=== PATIENT | male | born 1945 | race Caucasian/White ===

== ENCOUNTER → 2016-11-08 | Day surgery (SDC) | payer MEDICARE, BC ==
[~2016-11-08] MED LIST: ACCURETIC 20-121 TAB; ASPIRIN325 M1 PO; ASPIRINEC; AUGMENTIN875 MG PO; BAYER ASPIRIN325 M1 PO; COLACE; COUMADIN; FOLIC ACID1 MG PO; GLYBURIDE2.5 M1 PO; HYDRALAZINE HCL25 MG PO; HYDROCHLOROTHIA25 MG PO; LASIX20 MG PO; LEVO-T200 MCG PO; LEVOTHYROXINE175 MCG PO; LEVOXYL200 MC1 PO; LISINOPRIL20 MG PO; METFORMIN HCL850 MG PO; NASCOBAL1 EACH; PROTONIX; ST. JOSEPH ASP325 MG; SYNTHROID; VICODIN 5/1 TAB 5/50 PO; XELODA500 MG PO
--- NOTE | ~2016-11-08 | OR ---
Unit #: [id number] #: [id number] Patient: LENY SCOTT [id number] [facility] [address] [facility]. [place], [place] [address] [id number] MR#: [id number] NAME: LENY SCOTT ROOM: Date of Procedure: 11/08/2016 Admission Date: 11/08/2016 Surgeon: Marito Muir M.D. : 1945 Attending Physician: Marito Muir M.D. Primary Care Physician: Venkatesh Alvarado M.D. OPERATIVE REPORT PRIMARY CARE PHYSICIAN Venkatesh Alvarado M.D. PREOPERATIVE DIAGNOSIS Rectal cancer, status post adjuvant therapy. POSTOPERATIVE DIAGNOSIS Residual carcinoma and stricture at 10 cm from the anal verge. PROCEDURE PERFORMED Limited proctosigmoidoscopy. ANESTHESIA Monitored anesthesia. INDICATIONS FOR PROCEDURE A 71-year-old gentleman, who was previously diagnosed with rectal cancer in 05/2016, has completed preoperative chemotherapy and radiation therapy and was referred by Medical Oncology for consideration of surgical resection. DESCRIPTION OF PROCEDURE The patient was admitted to [facility], positively identified, and transported to the endoscopy unit. After appropriate monitoring and positioning, he was sedated by the anesthesiologist. On rectal examination, there was some residual loose stool in the rectal vault. There was no palpable mass on digital examination. Colonoscope was passed through the anal verge and we copiously irrigated the rectal vault to clear of residual stool and as I passed up into the mid and upper rectum, he had evidence of some residual carcinoma and stricturing that was circumferential. It was a very tight stricture that I could see stool above the stricture, but it was much too narrow to even consider attempting the passage of a colonoscope. After the fact, I spoke with his and ask if he had been complaining of bloating, nausea, and vomiting and if he had been moving his bowels. She says he goes frequently and it is usually loose and he feels as though he incompletely evacuates. I certainly understand why he has those symptoms after seeing his endoscopy. At this point, his residual carcinoma is high enough above the anal verge that a low anterior resection could most likely be done; however, he cannot be adequately prepped with a stricture of this nature. The only alternative would be to try to place a stent to dilate the stricture adequately, so that he could have an adequate bowel prep and then have Unit #: [id number] #: [id number] Patient: LENY SCOTT subsequent stent removal and low anterior resection. However, given that he has had chemo and radiation and from the look of the stricture, it looks pretty fibrotic and I do not know if this is going to respond to stenting. I told his that if could not be stented, we could not do an adequate prep, then he would have to have a resection with colostomy formation and if we have negative margins and he has adequate residual rectum, then a low anterior anastomosis could be done at a later date. I am going to have the patient after he is recovered from his sedation, come the office, will discuss these options. I will also speak with [facility] to see what their experience with a stent in this situation are. Dictated by... Kayla Joseph/fuad TD: 11/09/2016 06:48 JOB #: [id number] OPERATIVE REPORT X Marito Muir MD PROCEDURE OPERATIVE NOTE
== END | disposition home or self-care (01) ==
LOC: COPS 12:20
DX: C20 Malignant neoplasm of rectum (principal); K62.4 Stenosis of anus and rectum; E03.9 Hypothyroidism, unspecified; E78.5 Hyperlipidemia, unspecified; I10 Essential (primary) hypertension; E66.01 Morbid (severe) obesity due to excess calories; E11.9 Type 2 diabetes mellitus without complications; N39.0 Urinary tract infection, site not specified; Z86.711 Personal history of pulmonary embolism; Z90.89 Acquired absence of other organs; Z98.890 Other specified postprocedural states; Z88.8 Allergy status to other drugs, medicaments and biological substances; Z79.82 Long term (current) use of aspirin; Z79.899 Other long term (current) drug therapy; Z87.891 Personal history of nicotine dependence
CPT/HCPCS: 82947; J2250

== ENCOUNTER 2016-11-13 13:21 | Inpatient (IN) | payer MEDICARE, BC ==
--- NOTE | ~2016-11-13 | CR6 ---
[facility] A Service of [facility] RADIOLOGY TEXT RESULTS PATIENT: LENY SCOTT LOCATION: [place] [address]- : [birth year] UNIT #: [id number] AGE: [address]: Marito Muir MD SEX: M ORDER DR: [id number] [facility] [address] [facility] [address] [place], [place] [address] [id number] I MR#: [id number] Acc #: [id number] NAME: LENY SCOTT : 1945 SEX: M STUDY DATE/TIME: 11/25/2016 9:10 UNIT: [facility] ROOM: [facility] STUDY DESCRIPTION: CR Abdomen Portable Sng View Attending Physician: Marito Muir M.D. Ordering Physician: Efrain Selby M.D. Primary Care Physician: Venkatesh Alvarado M.D. MEDICAL IMAGING REPORT This report is preliminary unless electronic signature is present EXAM KUB INDICATIONS Nausea and vomiting and constipation since colon resection last . FINDINGS This patient has marked gaseous distension of stomach, small bowel and colon. Findings are most in keeping with adynamic ileus. Gastric bubble in particular appears distended and patient potentially may benefit from nasogastric decompression. Surgical drain is suspected within the operative bed, and there are surgical levy overlying the left lower quadrant. IMPRESSION Gaseous distension of multiple bowel loops most in keeping with adynamic ileus. Patient is noted to have significant distension of the gastric bubble and potentially may benefit from nasogastric decompression. Dictated by... Alicia Beaver M.D. THIS IS AN ELECTRONICALLY VERIFIED REPORT Alicia Beaver M.D. at 11/27/2016 9:18 AM AFF/psc TD: 11/25/2016 20:36 JOB #: [id number] MEDICAL IMAGING REPORT COPY
--- NOTE | ~2016-11-13 | CR4 ---
[facility] A Service of [facility] & [facility] RADIOLOGY TEXT RESULTS PATIENT: LENY SCOTT LOCATION: [place] [address]- : [birth year] UNIT #: [id number] AGE: [address]: Marito Muir MD SEX: M ORDER DR: [id number] [facility] [address] [place], [place] [address] [id number] I MR#: [id number] Acc #: [id number] NAME: LENY SCOTT. : 1945 SEX: M STUDY DATE/TIME: 11/18/2016 10:41 UNIT: [facility] ROOM: [facility] STUDY DESCRIPTION: CR Abdomen Flat Upright or Dec Attending Physician: Marito Muir M.D. Ordering Physician: Calvin Kunz Jr., M.D. Primary Care Physician: Venkatesh Alvarado M.D. MEDICAL IMAGING REPORT This report is preliminary unless electronic signature is present EXAM Abdomen series 11/18/2016. HISTORY 71-year-old male with a 2-day history of abdomen distension, nausea and vomiting. History of surgery for colon cancer. TECHNIQUE Flat and upright abdomen series was obtained. FINDINGS Surgical levy are superimposed over the lower abdominal midline, and there is a surgical drain in the right side of the pelvis. There is marked dilatation of air-filled small bowel throughout the central abdomen, the colon appears decompressed. There may also be some free air within the upper anterior abdomen, likely postoperative, correlate clinically. The stomach is at least moderately distended with air. The findings are nonspecific. Postoperative adynamic ileus is likely. If there is clinical suspicion for bowel perforation or mechanical obstruction, consider followup CT abdomen and pelvis for more detailed evaluation. IMPRESSION 1. Postop changes recent abdominal surgery with right-side pelvic drain. 2. Markedly distended air-filled small bowel with a decompressed colon. Postoperative adynamic ileus is likely, but mechanical obstruction is not excluded. 3. Possible free air within the upper anterior abdomen may be postoperative, correlate clinically. 4. Air distended stomach. STAT * RESULT [facility] A Service of [facility] & [facility] RADIOLOGY TEXT RESULTS PATIENT: LENY SCOTT LOCATION: [place] [address]- : [birth year] UNIT #: [id number] AGE: [address]: Marito Muir MD SEX: M ORDER DR: Dictated by... Juan Terrazas M.D. THIS IS AN ELECTRONICALLY VERIFIED REPORT Juan Terrazas M.D. at 11/18/2016 3:06 PM GÓMEZ/mary TD: 11/18/2016 13:14 JOB #: [id number] MEDICAL IMAGING REPORT COPY
--- NOTE | ~2016-11-13 | HP ---
Unit #: [id number] #: [id number] Patient: LENY HELMS [id number] [address] [place], [place] [address] [id number] I MR#: [id number] NAME: LENY HELMS. ROOM: 228 Age: Sex: M Admission Date: 11/13/2016 : 1945 Attending Physician: Marito Muir M.D. Primary Care Physician: Venkatesh Alvarado M.D. HISTORY AND PHYSICAL HISTORY OF PRESENT ILLNESS Mr. Helms is a 71-year-old gentleman who was initially diagnosed in April 2016 with rectal cancer. At that time, he was referred for adjuvant chemotherapy and radiation which he has completed. He recently was referred back to our office for evaluation for possible surgical resection. On sigmoidoscopy at that time, he was found to have a fibrotic stricture that was near obstructing at 8-10 cm from the anal verge. He was sent home with plan to bring the patient back for resection if he was able to be adequately bowel prepped, but because of his stricture, we wanted to investigate whether or not a stent could be placed. Due to the fibrotic nature of the stricture, it is felt that he probably would not respond to stenting. He now presents with complaints of colic, nausea, vomiting, and obstipation x24 hours. I plan on admitting the patient to the hospital and preparing him for surgical resection. PAST MEDICAL HISTORY 1. Type 2 diabetes. 2. Previous pulmonary embolism. 3. Hypertension. 4. Hypothyroidism. 5. Obstructive sleep apnea. 6. Tonsillectomy. 7. Multiple foot surgeries for tarsal tunnel syndrome. ALLERGIES No allergies to medication. CURRENT MEDICATIONS 1. Levothyroxine. 2. Baby aspirin. 3. Lisinopril. 4. Glyburide. 5. Metformin. 6. Lasix. FAMILY HISTORY Colon cancer, atherosclerotic coronary artery disease, hypertension, and diabetes. SOCIAL HISTORY He denies the use of tobacco or alcohol. He is . Retired. REVIEW OF SYSTEMS No fever or chills and no hematemesis, hematochezia, or melena. Unit #: [id number] #: [id number] Patient: LENY HELMS PHYSICAL EXAMINATION VITAL SIGNS: Temperature is 97.8, pulse 90, respirations 23 and unlabored, and blood pressure 144/72. GENERAL: He is awake, alert, and oriented, and currently in no acute distress. He has had no further nausea or vomiting since being given some Zofran. HEENT: Unremarkable. CARDIAC: Regular rhythm. LUNGS: Clear. ABDOMEN: Nondistended. It is soft. He does not have any involuntary guarding or rebound tenderness. There is no palpable mass. EXTREMITIES: No edema. NEUROLOGICAL: Grossly intact. DIAGNOSTIC STUDIES LABORATORY: Comprehensive metabolic panel is within normal limits. Lipase is normal. White count is 5700, hemoglobin 12.9, and platelets 299,000. IMAGING: Plain abdominal films show air throughout the majority of the colon but no air in the rectum. ASSESSMENT AND PLAN A 71-year-old gentleman with a fibrotic stricture at the site of a rectal cancer approximately 8 cm from the anal verge. The patient has completed chemoradiation therapy and due to his stricture will not be able to be adequately bowel prepped to do a low anterior resection. He will need exploratory laparotomy with resection and colostomy formation. We had previously discussed the possibility of trying to stent this area to effect a bowel preparation, but the fibrotic nature of the stricture will prevent effective stenting. The patient will be admitted and evaluated for surgery. Dictated by Kayla Joseph/josé TD: 11/13/2016 17:46 JOB #: [id number] HISTORY AND PHYSICAL X Marito Muir MD HISTORY AND PHYSICAL
--- NOTE | ~2016-11-13 | CR63 ---
[facility] A Service of [facility] RADIOLOGY TEXT RESULTS PATIENT: LENY SCOTT LOCATION: [place] [address] : [birth year] UNIT #: [id number] AGE: [address]: Marito Muir MD SEX: M ORDER DR: [id number] [facility] [address] [facility]. [place], [place] [address] [id number] I MR#: [id number] Acc #: [id number] NAME: LENY SCOTT : 1945 SEX: M STUDY DATE/TIME: 11/22/2016 8:25 UNIT: [facility] ROOM: [facility] STUDY DESCRIPTION: CR Chest 2 View Attending Physician: Marito Muir M.D. Ordering Physician: Marito Muir M.D. Primary Care Physician: Venkatesh Alvarado M.D. MEDICAL IMAGING REPORT This report is preliminary unless electronic signature is present EXAM Chest, 2 views, 11/22/2016. INDICATION 71-year-old male with shortness of air and congestion since yesterday. Colon cancer status post chemotherapy. TECHNIQUE Two-view chest compared with 07/02/2016. FINDINGS Lateral views degraded by body habitus and motion and exposure factors. The heart is enlarged. Enteric tube tip is at the level the distal body stomach. Lung volumes are low and there is bronchovascular crowding with probable atelectasis in the lung bases, right greater than left. Mild eventration or elevation of the right hemidiaphragm. No pneumothorax. IMPRESSION Cardiomegaly with low lung volumes, bronchovascular crowding, and probable atelectasis in the lung bases, right greater than left. No pneumothorax. Dictated by... Jake Cage M.D. THIS IS AN ELECTRONICALLY VERIFIED REPORT Jake Cage M.D. at 11/22/2016 11:46 AM MARVIN/yuliet TD: 11/22/2016 10:46 JOB #: [id number] [facility] A Service of [facility] RADIOLOGY TEXT RESULTS PATIENT: LENY SCOTT LOCATION: [facility] [address] : [birth year] UNIT #: [id number] AGE: [address]: Marito Muir MD SEX: M ORDER DR: MEDICAL IMAGING REPORT COPY
--- NOTE | ~2016-11-13 | CR4 ---
[facility] A Service of [facility] RADIOLOGY TEXT RESULTS PATIENT: LENY SCOTT LOCATION: [facility] : [birth year] UNIT #: [id number] AGE: [address]: Marito Muir MD SEX: M ORDER DR: [id number] [facility] [address] [facility]. [place], [place] [address] [id number] I MR#: [id number] Acc #: [id number] NAME: LENY SCOTT : 1945 SEX: M STUDY DATE/TIME: 11/19/2016 10:02 UNIT: [facility] ROOM: [address] [place] [address] DESCRIPTION: CR Abdomen Flat Upright or Dec Attending Physician: Marito Muir M.D. Ordering Physician: Jamin Durand III, M.D. Primary Care Physician: Venkatesh Alvarado M.D. MEDICAL IMAGING REPORT This report is preliminary unless electronic signature is present EXAM Abdomen flat and upright HISTORY Generalized abdominal pain, constipation for the past 4 days. History of colon cancer. PROCEDURE Supine and upright views of the abdomen and pelvis. COMPARISON 03/18/2017 FINDINGS NG tube has been placed in the stomach. There is no free air. Small bowel loops are prominent and air-filled measuring up to 5.5 cm. There is gas seen in the colon. There is a surgical drain in the pelvis which is stable. IMPRESSION 1. Air-filled small bowel loops similar to the prior study. There is gas and stool seen in the colon which is most suggested that this represents an ileus. Small bowel obstruction not completely excluded, but is disfavored, essentially no change from yesterday. 2. There has been placement of an NG tube which is positioned in the stomach. Dictated by... Hamlet Moeller M.D. THIS IS AN ELECTRONICALLY VERIFIED REPORT Hamlet Moeller M.D. at 11/19/2016 4:52 PM [facility] A Service of [facility] RADIOLOGY TEXT RESULTS PATIENT: LENY SCOTT LOCATION: [facility]01 : [birth year] UNIT #: [id number] AGE: [address]: Marito Muir MD SEX: M ORDER DR: FAN/francesca TD: 11/19/2016 15:07 JOB #: [id number] MEDICAL IMAGING REPORT COPY
--- NOTE | ~2016-11-13 | CO ---
Unit #: [id number] #: [id number] Patient: CINDY HELMS [id number] [address] [place], [place] [address] [id number] I MR#: [id number] NAME: CINDY HELMS ROOM: 228 Age: 71 Sex: M Admission Date: 11/13/2016 : 1945 Attending Physician: Marito Muir M.D. Primary Care Physician: Venkatesh Alvarado M.D. Consultation Date: 11/14/2016 CONSULTATION REPORT REASON FOR CONSULTATION Rectal cancer. HISTORY OF PRESENT ILLNESS Mr. Cindy Helms is a 71-year-old with a history of type 2 diabetes and rectal cancer diagnosed on 06/07/2016 and presented with severe anemia and rectal bleeding. He is one of circumferential mass involving the rectum causing narrowing the lumen with obstruction measuring 6.8 x 5.8 x 6.1 cm with injection of adjacent pelvic fat reflecting local tumor spread. CT angio of the chest did not show any evidence of metastatic disease as did a CT abdomen and pelvis pathology revealed extensive ulceration and mucosal carcinoma. Preop CEA level was 6. He is thereafter treated with concurrent chemoradiation therapy with p.o. Xeloda with radiation completed on 08/09/2016 with treatment being 06/28/2016 to 08/09/2016 with 28 treatments or 180 cGy for a total dose of 5040 cGy and a boost of 540 cGy for a total dose of 5540. He underwent a colonoscopy on 11/08/2015 with the finding of a residual carcinoma in stricture at 10 cm from the anal verge. He is being electively admitted for rectosigmoid resection, diverting colostomy, given inability to have an adequate bowel prep prior to the procedure with plans for reversal at a later date. Mr. Helms tells me that he has been feeling reasonably well without any new problems. PAST MEDICAL HISTORY Sleep apnea. PAST SURGICAL HISTORY Multiple foot surgeries, tarsal tunnel syndrome. FAMILY HISTORY Coronary artery disease and a first cousin with colon cancer. SOCIAL HISTORY Quit smoking more than 40 years ago. Does not drink any alcohol. He is . Lives with his . ALLERGIES He has no known medication allergies. REVIEW OF SYSTEMS 14-point review of systems was taken. CONSTITUTIONAL: No recent change in appetite and weight. EYES: Negative. EARS, NOSE, MOUTH, AND THROAT: Negative. Unit #: [id number] #: [id number] Patient: CINDY HELMS CARDIOVASCULAR: Negative. RESPIRATORY: Sleep apnea. According to his , he has also got some unusual anatomy of his throat, which makes intubation difficult. GASTROINTESTINAL: No recent change in bowel habits. Mild constipation. No further rectal bleeding. GENITOURINARY: Negative. NEUROLOGIC: Negative. ALLERGIC/LYMPHATIC: Negative. SKIN: Negative. PSYCHIATRIC: Negative. PHYSICAL EXAMINATION GENERAL: He is a pleasant elderly man, lying in bed, currently in no distress. Awake, alert, oriented x3. VITAL SIGNS: Temperature is 98.1, pulse is 92, respiratory rate is 18, blood pressure 114/64, O2 saturation 96% on room air. HEENT: Shows pupils are equal and reactive well to light. Mild pallor. No icterus. Mucous membranes are moist. NECK: Without adenopathy, JVD, or thyromegaly. CARDIOVASCULAR: First and second heart sounds are regular with no murmurs, gallops, or rubs. LUNGS: Chest expansion is symmetric bilaterally. Normal breath sounds. ABDOMEN: Soft, nontender. Bowel sounds are active. No organomegaly. EXTREMITIES: Warm and good pulses. No edema, cyanosis, or clubbing. NEUROLOGIC: The patient is awake, alert, and oriented x3 without any focal findings. LYMPHATIC: Negative. PSYCHIATRIC: Normal affect. DIAGNOSTIC STUDIES LABORATORY RESULTS: CEA level is 1. TSH is 0.14. CBC shows a white count of 6.3, hemoglobin 11.8, platelets 284,000. Basic metabolic panel shows a glucose of 137, BUN is 15, creatinine is 1. LFTs are normal. ASSESSMENT AND PLAN Cindy Helms is 71 years old with a history of stage III rectal cancer for which he underwent concurrent chemoradiation therapy. He is now scheduled electively for rectosigmoid resection with a diverting colostomy in view of inability to get a good bowel prep with plans for reversal at a later point. An extensive discussion with Mr. Helms's was at bedside. We will await the results of surgery and pathology to make final determinations, but he will require postop adjuvant therapy with a 5-FU based regimen starting 3 weeks post surgery and we discussed the colostomy reversal can be delayed until after its completion which will be 4 months. He also remains mildly anemic likely for to make pre-existing iron deficiency. Recommend Ferrlecit 250 mg IV daily for the next 2 days. Thank you for allowing me to participate in his care and I will follow with you. Dictated by... Kayla Fields/fuad TD: 11/15/2016 05:34 Unit #: [id number] #: [id number] Patient: CINDY HELMS JOB #: [id number] CONSULTATION REPORT X Jeremie Montes MD CONSULTATION REPORT
--- NOTE | ~2016-11-13 | EKG ---
PATIENT: LENY SCOTT UNIT #: [id number] Ventricular Rate: 90 BPM Atrial Rate: 90 BPM P-R Interval: 186 ms QRS Duration: 76 ms Q-T Interval: 380 ms QTC Calculation(Bezet): 464 ms P Ophelia: 50 degrees Calculated R Ophelia: 16 degrees Calculated T Ophelia: 0 degrees Diagnosis Line: Normal sinus rhythm Diagnosis Line: Normal ECG Diagnosis Line: When compared with ECG of 01-JUL-2016 07:42, Diagnosis Line: Nonspecific T wave abnormality no longer evident Diagnosis Line: in Anterior leads Diagnosis Line: Confirmed by JANETH SMITH MD ([id number]) on 11/14/2016 Diagnosis Line: 6:11:25 PM INTERPRETING MD: ASRAH ALMONTE
--- NOTE | ~2016-11-13 | FU ---
[facility] Therapy DATE: 11/23/16 Patient: LEYN SCOTT Physician: STEROB Address: [address] [place] [address] Room/Bed: [address] [place] [address], Zip: [place] [address] Admit Date: 11/13/16 Date of : [birth year] Height: 5 9 Weight: 265 120.2 NUTRITION MONITORING/FOLLOW-UP: Reason: PT SEEN FOR FOLLOW-UP DX: CONSTIPATION, COLON CA Anthropometrics: 5'9", WT: 264# (120 KG) (ADMIT WEIGHT), BMI: 39.0 -NO UPDATED WEIGHTS Labs: GLU: 129, CA: 7.8, ALB: 1.9 Meds: H-CHLOR 12, NOVOLOG, MILK OF MAGNESIA, REGLAN, ZOFRAN, SYNTHROID, KCL, PROTONIX I&O's: [id number]/6972 Skin: ISSUES NOTED Estimated Nutrition Needs: INCREASED NUTRIENT NEEDS 2' CURRENT CONDITION Assessment: CHART REVIEWED AND EVENTS NOTED. PT SEEN FOR FOLLOW-UP. PT SITTING IN CHAIR AT BEDSIDE REPORTING TOLERATING CLEAR LIQUID DIET, NO C/O N/V/D. PT'S DIET HAS BEEN ADVANCED TO CLEAR LIQUID. PT REPORTS WANTING TO EAT. PT STATES HE CONSUMES BOWL OF BROTH AND APPLE JUICE FOR LUNCH. THIS RD ENCOURAGED SLOW GRADUAL PO INTAKE + SUPPLEMENT INTAKE, PT AGREED TO ENSURE CLEAR BID, RD WILL ORDER. PT REPORTED NO DIET QUESTIONS AT THIS TIME. RD TO FOLLOW. Dx: ALTERED NUTRIENT NEEDS R/T DX, CURRENT CONDITION AEB PT ON CLEAR LIQUID DIET. Intervention: 1. CLEAR LIQUID DIET 2. ENSURE CLEAR BID Monitoring, Evaluation and Goals: GOALS NOT MET 1. PO INTAKE; PROVIDE AND CONSUME ADEQUATE NUTRITION W/NO C/O N/V/D (PO>50%) 2. WEIGHTS; PROMOTE GRADUAL WEIGHT GAIN 3. LABS; WNL 4. GI; PROMOTE REGULAR GI FUNCTION MONITOR: -DIET ADVANCEMENT -PO INTAKE/APPETITE -SUPPLEMENT INTAKE Recommendations: 1. ORDER APPLE ENSURE CLEAR BID W/MEALS [facility] DATE: 11/23/16 Patient: LENY SCOTT Physician: GERTRUDISOB Address: [address] [place] [address] Room/Bed: [address] [place] [address], Zip: [place] [address] Admit Date: 11/13/16 Date of : [birth year] Height: 5 9 Weight: 265 120.2 2. ONCE MEDICALLY FEASIBLE, ADVANCE DIET TOLERATED TO CC+LOW FIBER 3. APPRECIATE FAMILY AND STAFF TO ENCOURAGE PO INTAKE RD WILL F/U PER PROTOCOL PT IS MODERATELY COMPROMISED Respectfully, FLAQUITO GRAFF MS, RD, LD [facility] cc: client file
--- NOTE | ~2016-11-13 | FU ---
[facility] Nutrition Therapy DATE: 11/29/16 Patient: LENY SCOTT Physician: STEROB Address: [employer] [facility] Room/Bed: [address] [place] [address], Zip: [place] [address] Admit Date: 11/13/16 Date of : 46 Height: 5 9 Weight: 265 120.2 NUTRITION MONITORING/FOLLOW-UP: Reason: PT SEEN FOR FOLLOW-UP DX: CONSTIPATION, COLON CA Anthropometrics: 5'9", WT: 264# (120 KG) (ADMIT WEIGHT), BMI: 39.0 Labs: GLU: 159, BUN: 8, CA+:7.5, ALB: 1.9, NA+:134 Meds: MEDICATIONS REVIEWED I&O's: Skin: BLE TRACE EDEMA; BUE GENERALIZED EDEMA Estimated Nutrition Needs: INCREASED NUTRIENT NEEDS 2' CURRENT CONDITION Assessment: CHART REVIEWED AND EVENTS NOTED. PT SEEN FOR FOLLOW-UP. PT REPORTS TOLERATING PO INTAKE AND APPETITE, NO C/O N/V/D. PT HAS BEEN PLACED ON REGULAR DIET. THIS RD ENCOURAGED SLOW GRADUAL PO INTAKE + SUPPLEMENT INTAKE, PT AGREED TO GLUCERNA SHAKES BID, RD WILL ORDER. PT REPORTED NO DIET QUESTIONS AT THIS TIME. RD TO FOLLOW. Dx: DECREASED NUTRIENT INTAKE R/T CURRENT CONDITION AEB PT REPORT ABOVE. Intervention: 1. REGULAR DIET 2. GLUCERNA SHAKES BID Monitoring, Evaluation and Goals: GOALS MET 1. PO INTAKE; CONSUME PO INTAKE W/NO C/O N/V/D (PO>50%) 2. LABS; WNL 3; GI; PROMOTE REGULAR GI FUNCTION MONITOR: -PO INTAKE/APPETITE -WEIGHTS -SUPPLEMENT INTAKE Recommendations: 1. ORDER DHARMESH GLUCERNA SHAKES BID W/MEALS 2. ENCOURAGE SLOW GRADUAL PO INTAKE [facility] Nutrition Therapy DATE: 11/29/16 Patient: LENY SCOTT Physician: STEROB Address: [employer] [facility] Room/Bed: [address] [place] [address], Zip: [place] [address] Admit Date: 11/13/16 Date of : 46 Height: 5 9 Weight: [address] WILL F/U PER PROTOCOL PT IS MILDLY COMPROMISED Respectfully, FLAQUITO GRAFF MS, RD, LD Food and Nutritional Services [facility] cc: client file
--- NOTE | ~2016-11-13 | OR ---
Unit #: [id number] #: [id number] Patient: LENY SCOTT [id number] [address] [place], [place] [address] [id number] I MR#: [id number] NAME: LENY SCOTT ROOM: 472 Date of Procedure: 11/15/2016 Admission Date: 11/13/2016 Surgeon: Marito Muir M.D. : 1945 Attending Physician: Marito Muir M.D. Primary Care Physician: Venkatesh Alvarado M.D. OPERATIVE REPORT PREOPERATIVE DIAGNOSIS Obstructing rectal cancer. POSTOPERATIVE DIAGNOSIS Obstructing rectal cancer. PROCEDURES PERFORMED Exploratory laparotomy, rectosigmoid resection with end-colostomy formation, Keenan-Hussein drain placement into the pelvis. ARTIST'S REPRESENTATIVE Crady. ANESTHESIA General endotracheal anesthesia. ESTIMATED BLOOD LOSS 100 mL. INDICATIONS FOR PROCEDURE Mr. Scott is a 71-year-old gentleman, who was diagnosed with rectal cancer in 04/2016. He has been undergoing chemo radiation therapy and was sent for surgical resection on followup endoscopy. He had a near complete obstruction with a fibrotic stricture at approximately 8 cm from the anal verge. We discussed doing a colostomy to decompress the patient and attempt to resect the mass. DESCRIPTION OF PROCEDURE The patient was transported from his hospital room to the operating room, and after induction of general endotracheal anesthesia, a Roe catheter was placed. NG tube was placed. His abdominal wall was clipped of hair and he was prepped and draped in usual sterile fashion. A midline incision made. We dissected down through the soft tissue and entered the peritoneal cavity. Upon entering the peritoneal cavity, the patient had a large amount of free fluid that we suctioned out. Used the Bookwalter for retraction, packed off the small bowel on right colon and identified the sigmoid colon. Upon entering the peritoneal cavity, the patient was found to have a massively dilated urinary bladder, which was extended well above the sacral promontory. We tried to retract it, so that we could visualize the pelvis better, but it was so large that it would envelope the retractor and we could not get adequate visualization. I took down the peritoneal reflection of the sigmoid colon and mobilized it and dissected Unit #: [id number] #: [id number] Patient: LENY SCOTT down and at the level of the stricture as I was trying to mobilize this, the colon had a contained perforation. It self divided at this spot, so I could clamp, divide, and ligated the mesentery and divided the rectosigmoid with the SOPHIE stapler proximally and sent the specimen to the laboratory. The pelvis could not be adequately visualized to be able to mobilize the rest of the rectum and get a distal margin on the tumor, so I placed a Keenan-Hussein drain into the pelvis from a separate stab incision, but there was no feces or feculent contamination at this site. A stoma was made in the left lower quadrant and the proximal colon was brought up for an end colostomy. I irrigated and obtained hemostasis. I then closed the midline fascia with #1 Vicryl interrupted sutures, irrigated the soft tissue with saline and Betadine and closed the skin with sterile skin levy. The abdominal wall was cleaned. Tegaderm was placed as occlusive dressing over the incision and then the colon was opened and the stoma was matured with 3-0 Vicryl interrupted sutures. An ostomy bag was placed with Mastisol. Sponges and needle counts were correct x3. The drain was placed to bulb suction. His catheter will be left in place and Urology will be consulted to treat his chronic bladder outlet obstruction. I discussed this with the family and told him that the complete tumor was not resected that he will need further surgery, but to do it safely. He is going to need to have a decompression of his bladder and possibly further chemotherapy. Sponges and needle counts were correct x3. The patient tolerated the procedure well and transported to recovery in stable condition. Dictated by... Kalya Joseph/fuad TD: 11/16/2016 00:32 JOB #: [id number] OPERATIVE REPORT X Marito Muir MD PROCEDURE OPERATIVE NOTE
--- NOTE | ~2016-11-13 | A ---
[facility] Nutrition Therapy DATE: 11/14/16 Patient: LENY SCOTT Physician: STEROB Address: [address] Room/Bed: [address] [place] [address], Zip: [place] [address] Admit Date: 11/13/16 Date of : 46 Height: 5 9 Weight: 265 120.2 NUTRITIONAL ASSESSMENT: REASON: RD trigger for wt loss and eating poorly. PMH: Rectal CA s/p radiation/chemo, DM, HTN, Hypothyroid Anthropometrics: 69", 264#, BMI 39 Labs: Na+ 134, Ca++ 8.3, POC 77-109 Meds: Novolog-low SS, Zofran, KCl, PPI, Morphine I/O & Bowel function: +constipation Assessment: 71 y/o male admitted for constipation. +Fibrotic stricture @ site of rectal ca, planning resection tomorrow. Pt reports 70# wt loss in 2 yrs 2' CA dx but now starting to gain wt back. Reviewed wts, appears pt has actually lost 11-22# since last fall(May/June 2016). Reports decreased appetite/PO intake past few days 2' constipation/abd distension/nausea. Tolerating clear liquids. Dx: Predicted suboptimal energy intake r/t constipation/abd pain AEB decreased PO intake/appetite. Intervention: 1. Clear liquid diet Monitoring, Evaluation and Goals: 1. Tolerate diet advancement 2. Consume >50% of meals Recommendations: 1. Advance diet as tolerated to goal Carb consistent/Low residue. Mild nutrition risk Respectfully, BRITTANI BERRY, RD, LD [facility] Nutrition Therapy DATE: 11/14/16 Patient: LENY SCOTT Physician: STEROB Address: [facility] [address] Room/Bed: [address] [place] [address], Zip: [place] [address] Admit Date: 11/13/16 Date of : 46 Height: 5 9 Weight: 265 120.2 Food and Nutritional Services [facility] cc: client file
--- NOTE | ~2016-11-13 | CO ---
Unit #: [id number] #: [id number] Patient: LENY SCOTT [id number] [address] [place], [place] [address] [id number] I MR#: [id number] NAME: LENY SCOTT. ROOM: 472 Age: 71 Sex: M Admission Date: 11/13/2016 : 1945 Attending Physician: Marito Muir M.D. Primary Care Physician: Venkatesh Alvarado M.D. Consultation Date: 11/15/2016 CONSULTATION REPORT REASON FOR CONCLUSION Urinary frequency, possibly urinary retention. HISTORY OF PRESENT ILLNESS The patient is a 71-year-old gentleman who was diagnosed in April 2016 with rectal cancer. He underwent neoadjuvant chemotherapy and radiation. He states that he began having urinary frequency and urgency about May or June of last year. He has not previously sought treatment for this. He denies gross hematuria. A CT scan of the abdomen and pelvis in June 2016 revealed normal upper tracts. He underwent a sigmoid colon and rectal resection today. He currently has a catheter in place. PAST MEDICAL HISTORY 1. Rectal cancer. 2. Type 2 diabetes. 3. Pulmonary embolism. 4. Hypertension. 5. Hypothyroidism. 6. Obstructive sleep apnea. PAST SURGICAL HISTORY 1. Tonsillectomy. 2. Multiple foot surgeries. 3. Sigmoid colon and rectal resection. MEDICATIONS Documented in the chart. ALLERGIES Documented in the chart. FAMILY HISTORY Cardiac disease, hypertension, diabetes, and colon cancer. SOCIAL HISTORY Negative for tobacco or alcohol use. REVIEW OF SYSTEMS Positive for urinary frequency and urgency. Negative for known history of urinary retention. PHYSICAL EXAMINATION GENERAL: A well-developed white male in no acute distress. VITAL SIGNS: Temperature 98, blood pressure 154/75, respirations 20, and Unit #: [id number] #: [id number] Patient: LENY SCOTT pulse 93. HEENT: Normocephalic and atraumatic. LUNGS: Patient is breathing comfortably. ABDOMEN: Soft, appropriately tender, and nondistended. Colostomy is in the left lower quadrant and is pink. GENITOURINARY: Roe catheter is in place draining clear urine. EXTREMITIES: No clubbing, cyanosis, or edema. DIAGNOSTIC STUDIES LABORATORY: Creatinine 1. IMAGING: CT scan from June 2016 reviewed as above. ASSESSMENT AND PLAN Urinary frequency and urgency. It is unclear how high his postvoid residuals were, and it is difficult to assess at this time. Will plan a voiding trial prior to discharge, and we will check postvoid residuals at that time and plan our treatment accordingly. Because he currently has an NG tube in place, he is not a candidate for alpha blockers. We appreciate the opportunity to participate in his care. Dictated by... Kayla Mayer/ojsé TD: 11/15/2016 19:03 JOB #: [id number] CONSULTATION REPORT X Abram Potter MD X CONSULTATION REPORT
--- NOTE | ~2016-11-13 | DS ---
Unit #: [id number] #: [id number] Patient: LENY HELMS [id number] [address] [place], [place] [address] [id number] I MR#: [id number] NAME: LENY HELMS ROOM: 47 Age: 71 Sex: M Admission Date: 11/13/2016 : 1945 Discharge Date: Attending Physician: Marito Muir M.D. Primary Care Physician: Venkatesh Alvarado M.D. DISCHARGE SUMMARY HISTORY AND HOSPITAL COURSE Mr. Helms is a 71-year-old gentleman who was diagnosed in May 2016 with rectal cancer. He underwent preoperative chemotherapy and radiation and was sent for followup evaluation by endoscopy. On endoscopy he had a fibrotic stricture about 8-10 cm from the anal verge and the patient was complaining of colic, nausea, and vomiting. He was admitted to the hospital and was scheduled for resection. The patient was seen by his medical oncologist while he was here. The patient was taken to the operating room on November 15 where he underwent exploratory laparotomy with rectosigmoid resection, end colostomy formation and placement of Keenan-Hussein drain. During the procedure, it was noted that he had a markedly distended and probably neurogenic bladder with the possibility of chronic outlet obstruction although he didn't have any preoperative complaints. He tolerated the procedure well and was readmitted to the hospital postoperatively. Dr. Harpal Potter was asked to see the patient for his bladder and he has started him on Flomax and said he would follow him up after discharge. The patient's postoperative course was generally unremarkable. Once we had resumption of bowel function after a several day ileus, he had good stoma function. He did develop, due to his obesity, a small wound infection at the distal end of his wound. The wound was opened and dressing changes initially and he has now has excellent granulation tissue. Laboratories have been within normal limits throughout the postoperative course. The patient's Roe is now out and he is voiding and we are continuing his Flomax. However, the patient, due to his age, obesity and general poor medical condition, is markedly deconditioned and it has been very difficult for him to mobilize and to do any rehab even with the help of physical therapy. For this reason, a rehab consult was requested and he has been accepted for ongoing rehab. He has been getting physical therapy while he was here, however. The ostomy nurse has been following the patient and has changes his appliance and has begun education with his . His pathology came back as a T3 N1a M0 lesion. Our margins were free. Again, he is still being followed for his stage 3 rectal cancer by medical oncology and, once he is better recovered and is more stable and has regained his strength, he will get postoperative adjuvant chemotherapy as directed by the medical oncology service. Otherwise, the patient is stable. His labs are within normal limits. He is tolerating a regular diet and stooling. He is off antibiotics. His Keenan-Hussein drain has been removed and he is tolerating dressing changes. He will be discharged to [facility] today for ongoing rehab. He is to wear an abdominal binder and the nursing staff is to continue his Unit #: [id number] #: [id number] Patient: LENY HELMS dressing changes t.i.d. with 1/4 strength Dakin's. His med reconciliation sheet was completed and prescriptions for hydrocodone and Flomax were left on the chart. He is to follow up in my office in two to three weeks and he is to follow up with Dr. Potter as previously scheduled or recommended. Dictated by... Kayla Joseph/gordon TD: 11/29/2016 07:52 JOB #: [id number] DISCHARGE SUMMARY X Marito Muir MD X DISCHARGE SUMMARY
--- NOTE | ~2016-11-13 | CR2 ---
[facility] A Service [facility] RADIOLOGY TEXT RESULTS PATIENT: LENY SCOTT LOCATION: [facility] : 46 UNIT #: [id number] AGE: [address]: Marito Muir MD SEX: M ORDER DR: [id number] [facility] [address] [place], [place] [address] [id number] MR#: [id number] Acc #: [id number] NAME: LENY SCOTT : 1945 SEX: M STUDY DATE/TIME: 11/13/2016 13:44 UNIT: [facility] ROOM: STUDY DESCRIPTION: CR Abdomen Acute Series Attending Physician: Lisset Guerrero M.D. Ordering Physician: Lisset Guerrero M.D. Primary Care Physician: Venkatesh Alvarado M.D. MEDICAL IMAGING REPORT This report is preliminary unless electronic signature is present EXAM Acute abdomen series HISTORY Constipation, abdominal cramping for the past 3 days. Additional history of colon cancer. TECHNIQUE A single view of the chest was obtained as well as flat and upright views of the abdomen. FINDINGS Chest x-ray obtained as part of the abdominal series shows no active pulmonary disease. In the abdomen there is moderately distended colon in a nonspecific pattern. I favor a generalized ileus although a distal colonic mechanical obstruction is not excluded. The small bowel is not distended. No free air is seen on the upright view. IMPRESSION Moderate gaseous distension of most of the colon. Probable ileus pattern versus distal colonic mechanical obstruction. Ileus is favored. Dictated by... Marito Chavis M.D. THIS IS AN ELECTRONICALLY VERIFIED REPORT Marito Chavis M.D. at 11/14/2016 10:24 AM RLF/gómez TD: 11/13/2016 17:11 JOB #: [id number] MEDICAL IMAGING REPORT [facility] A Service [facility] RADIOLOGY TEXT RESULTS PATIENT: LENY SCOTT LOCATION: [facility] : [birth year] UNIT #: [id number] AGE: [address]: Marito Muir MD SEX: M ORDER DR: DARREN
--- NOTE | ~2016-11-13 | FU ---
[facility] Nutrition Therapy DATE: 11/21/16 Patient: LENY SCOTT Physician: STEROB Address: [facility] [address] Room/Bed: [address] [place] [address], Zip: [place] [address] Admit Date: 11/13/16 Date of : 46 Height: 5 9 Weight: 265 120.2 NUTRITION MONITORING/FOLLOW-UP: Reason: PT SEEN FOR FOLLOW-UP DX: CONSTIPATION, COLON CA Anthropometrics: 5'9", WT: 264# (ADMIT) (120 KG), BMI: 39.0 Labs: GLU: 124, CA+:7.8, ALB: 2.2 Meds: H-CHLOR 12, NOVOLOG, MILK OF MAGNESIA, REGLAN, ZOFRAN, SYNTHROID, KCL, PROTONIX I&O's: [id number] Skin: OPEN WOUND COCCYX, OSTOMY ABD (ABD INCISION NOTED) EDEMA: BLE TRACE EDEMA; HANDS TRACE EDEMA; ABD GENERALIZED EDEMA Estimated Nutrition Needs: INCREASED NUTRIENT NEED 2' CURRENT CONDITION Assessment: CHART REVIEWED AND EVENTS NOTED. PT SEEN FOR FOLLOW-UP. PT REPORTS APPETITE "SO-SO", NOTES NO C/O N/V/D. OF NOTE, PT HAS BEEN NPO X 3 DAYS. PT IS S/P POD #6 EXPLORATORY RECTOSIGMOID RESECTION W/END COLOSTOMY FORMATION. THIS RD ENCOURAGED SLOW GRADUAL PO INTAKE ONCE DIET ADVANCES, PT AGREED. PT REPORTED NO DIET QUESTIONS AT THIS TIME. RD TO FOLLOW. Dx: ALTERED NUTRIENT NEEDS R/T CURRENT CONDITION AEB NPO X 3 DAYS. Intervention: 1. NPO Monitoring, Evaluation and Goals: GOALS NOT MET 1. PO INTAKE; PROVIDE AND CONSUME ADEQUATE NUTRITION W/NO C/O N/V/D (PO>50%) 2. LABS; WNL 3. GI; PROMOTE REGULAR GI FUNCTION MONITOR: -DIET ADVANCEMENT -PO INTAKE/APPETITE -WEIGHTS Recommendations: 1. PLEASE PROVIDE UPDATED WEIGHT 2. ONCE MEDICALLY FEASIBLE, BEGIN WITH CLEARS AND ADVANCE DIET TOLERATED TO CC+LOW [facility] Nutrition Therapy DATE: 11/21/16 Patient: LENY SCOTT Physician: STEROB Address: [facility] [address] Room/Bed: [address] [place] [address], Zip: [place] [address] Admit Date: 11/13/16 Date of : 46 Height: 5 9 Weight: 265 120.2 FIBER 3. ORDER APPROPIRATE SUPPLEMENTS BID ONCE DIET ADVANCES 4. IF PT UNABLE TO TOLERATE PO INTAKE, CONSULT RD FOR RECOMMENDATIONS RD WILL F/U PER PROTOCOL PT IS MODERATELY COMPROMISED Respectfully, FLAQUITO GRAFF MS, RD, LD Food and Nutritional Services [facility] cc: client file
--- NOTE | ~2016-11-13 | CR4 ---
[facility] A Service of [facility] RADIOLOGY TEXT RESULTS PATIENT: LENY SCOTT LOCATION: [facility] : [birth year] UNIT #: [id number] AGE: [address]: Marito Muir MD SEX: M ORDER DR: [id number] [facility] [address] [place], [place] [address] [id number] I MR#: [id number] Acc #: [id number] NAME: LENY SCOTT. : 1945 SEX: M STUDY DATE/TIME: 11/21/2016 9:17 UNIT: [facility] ROOM: [facility] STUDY DESCRIPTION: CR Abdomen Flat Upright or Dec Attending Physician: Marito Muir M.D. Ordering Physician: Marito Muir M.D. Primary Care Physician: Venkatesh Alvarado M.D. MEDICAL IMAGING REPORT This report is preliminary unless electronic signature is present EXAM Supine and upright radiographs of the abdomen 11/21/2016 HISTORY No output. Abdomen pain, constipation, nausea, vomiting 1 week duration. Prior history of colon cancer. FINDINGS Supine and upright radiographs of the abdomen and pelvis are presented. Comparison 11/19/2016. Nasogastric tube terminates in distal stomach. No change. Degenerative changes in the spine. Surgical drain right lower quadrant. Surgical skin levy right paracentral low abdomen and pelvis. Bowel gas pattern abnormal. Abnormally dilated loops of small bowel in the central abdomen measuring up to 5.4 cm in diameter on today's examination, previously 5.5 cm. No significant change. Smaller caliber small bowel loops seen in the right lower quadrant. Air and stool seen throughout colon to rectum with physiologic stool burden in the colon. No pathologic colonic dilatation. Given overall stability of findings and presence of air and stool throughout the colon, I favor the bowel gas pattern reflects postoperative adynamic ileus. There is relative disproportion of small bowel dilatation relative to colon and therefore I cannot exclude a stable partial small bowel obstruction. Findings could be further evaluated with CT, preferably with enteric and intravascular contrast, or small bowel follow-through if it would assist in patient management. IMPRESSION There are patchy densities at the bilateral infrahilar lung bases. Probably postoperative atelectasis. In the appropriate context, bibasilar pneumonia could be considered. Dictated by... [facility] of [facility] RADIOLOGY TEXT RESULTS PATIENT: LENY SCOTT LOCATION: [place] [address] : [birth year] UNIT #: [id number] AGE: [address]: Marito Miur MD SEX: M ORDER DR: Curt Alexis M.D. THIS IS AN ELECTRONICALLY VERIFIED REPORT Curt Alexis M.D. at 11/22/2016 12:31 PM LISA/el TD: 11/21/2016 14:05 JOB #: [id number] MEDICAL IMAGING REPORT COPY
[~2016-11-13 13:21] MED LIST changes: -BAYER ASPIRIN325 M1 PO; -LEVO-T200 MCG PO
[2016-11-13 14:05] LABS: BASOPHIL% 0.5 % (0-2.5); EOSINOPHIL% 0.5 % (0.0-7.0); HEMATOCRIT 39.5 % (38.0-50.0); HEMOGLOBIN 12.9 gm/dL (13.0-16.0); LYMPHOCYTE# 0.7 X10e3 (1.0-3.5); LYMPHOCYTE% 11.9 % (17.0-45.0); MEAN CORPUSCULAR HEMOGLOBIN 32.7 PG (28-34); MEAN CORPUSCULAR HGB CONC 32.7 g/dL (30-36); MEAN PLATELET VOLUME 7.4 FL (6.5-11.5); MONOCYTE# 0.4 X10e3 (0-1.0); MONOCYTE% 6.5 % (3.0-12.0); NEUTROPHIL# 4.6 X10e3 (1.5-7.1); NEUTROPHIL% 80.6 % (40-75); PLATELET COUNT 299 X10e3 (140-420); RED BLOOD COUNT 3.95 X10e (3.90-5.60); RED CELL DISTRIBUTION WIDTH 13.5 % (11.0-15.5); WHITE BLOOD COUNT 5.7 X10e3 (4.0-10.5)
[2016-11-13 14:10] LABS: DIFF IND NO
[2016-11-13 14:17] LABS: ALBUMIN SERUM 3.5 g/dL (3.5-5.0); ALKALINE PHOSPHATASE 52 U/L (32-92); ALT (SGPT) 16 U/L (10-40); AMYLASE 19 U/L (0-46); AST (SGOT) 17 U/L (10-42); BILIRUBIN, DIRECT 0.1 mg/dL (0.0-0.2); BILIRUBIN,INDIRECT 0.6 mg/dL (0.0-0.9); BILIRUBIN,TOTAL 0.7 mg/dL (0.2-2.0); BLOOD UREA NITROGEN 15 mg/dL (9-23); CALCIUM SERUM 8.9 mg/dL (8.4-10.2); CARBON DIOXIDE 24 mmol/L (22-31); CHLORIDE 104 mmol/L (100-111); GLOM FILT RATE Estimated ABOVE60 mL/min (>60); GLUCOSE FASTING 137 mg/dL (70-110); LIPASE 25 U/L (22-51); PROTEIN TOTAL SERUM 7.2 g/dL (6.0-8.3); SODIUM 137 mmol/L (135-145)
[2016-11-13] MEDS ORDERED: LEVOTHYROXINE175 MCG PO (14:27)
[2016-11-13] MEDS ORDERED: LEVO-T200 MCG PO (14:28)
[2016-11-13] MEDS ORDERED: BAYER ASPIRIN325 M1 PO (14:28)
[2016-11-13] MEDS ORDERED: GLYBURIDE2.5 M1 PO (14:29)
[2016-11-13] MEDS ORDERED: LISINOPRIL20 MG PO (14:29)
[2016-11-13] MEDS ORDERED: METFORMIN HCL850 MG PO (14:29)
[2016-11-13] MEDS ORDERED: LASIX20 MG PO (14:30)
[2016-11-14 06:31] LABS: HEMATOCRIT 35.9 % (38.0-50.0); HEMOGLOBIN 11.8 gm/dL (13.0-16.0); MEAN CORPUSCULAR HEMOGLOBIN 32.5 PG (28-34); MEAN CORPUSCULAR HGB CONC 32.9 g/dL (30-36); MEAN PLATELET VOLUME 7.1 FL (6.5-11.5); RED BLOOD COUNT 3.63 X10e (3.90-5.60); RED CELL DISTRIBUTION WIDTH 13.3 % (11.0-15.5); WHITE BLOOD COUNT 6.3 X10e3 (4.0-10.5)
[2016-11-14 07:38] LABS: BLOOD UREA NITROGEN 15 mg/dL (9-23); BUN/CREATININE RATIO 21.42; CALCIUM SERUM 8.3 mg/dL (8.4-10.2); CARBON DIOXIDE 22 mmol/L (22-31); CHLORIDE 107 mmol/L (100-111); CREATININE SERUM 0.7 mg/dL (0.6-1.4); GLOM FILT RATE Estimated ABOVE60 mL/min (>60); GLUCOSE FASTING 95 mg/dL (70-110); MAGNESIUM 1.8 mg/dL (1.6-3.0); PHOSPHOROUS 2.9 mg/dL (2.5-4.6); POTASSIUM 3.9 mmol/L (3.5-5.1); SODIUM 134 mmol/L (135-145)
[2016-11-14 07:51] LABS: PROCALCITONIN <0.05 NG/ML
[2016-11-15 11:33] LABS: HEMATOCRIT 37.7 % (38.0-50.0); HEMOGLOBIN 12.3 gm/dL (13.0-16.0)
[2016-11-15 12:02] LABS: BLOOD UREA NITROGEN 13 mg/dL (9-23); CALCIUM SERUM 8.4 mg/dL (8.4-10.2); CARBON DIOXIDE 20 mmol/L (22-31); CHLORIDE 111 mmol/L (100-111); GLOM FILT RATE Estimated ABOVE60 mL/min (>60); GLUCOSE FASTING 147 mg/dL (70-110); POTASSIUM 4.4 mmol/L (3.5-5.1); SODIUM 139 mmol/L (135-145)
[2016-11-16 04:06] LABS: HEMATOCRIT 35.2 % (38.0-50.0); HEMOGLOBIN 11.4 gm/dL (13.0-16.0); MEAN CORPUSCULAR HEMOGLOBIN 32.2 PG (28-34); MEAN CORPUSCULAR HGB CONC 32.6 g/dL (30-36); MEAN PLATELET VOLUME 6.9 FL (6.5-11.5); RED BLOOD COUNT 3.55 X10e (3.90-5.60); RED CELL DISTRIBUTION WIDTH 13.4 % (11.0-15.5); WHITE BLOOD COUNT 6.6 X10e3 (4.0-10.5)
[2016-11-16 04:37] LABS: BLOOD UREA NITROGEN 14 mg/dL (9-23); BUN/CREATININE RATIO 12.72; CALCIUM SERUM 8.1 mg/dL (8.4-10.2); CARBON DIOXIDE 21 mmol/L (22-31); CHLORIDE 114 mmol/L (100-111); CREATININE SERUM 1.1 mg/dL (0.6-1.4); GLOM FILT RATE Estimated ABOVE60 mL/min (>60); GLUCOSE FASTING 128 mg/dL (70-110); MAGNESIUM 1.5 mg/dL (1.6-3.0); POTASSIUM 4.6 mmol/L (3.5-5.1); SODIUM 141 mmol/L (135-145)
[2016-11-17 03:03] LABS: HEMOGLOBIN 9.6 gm/dL (13.0-16.0); MEAN CELL VOLUME 99.8 FL (83-96); MEAN PLATELET VOLUME 7.2 FL (6.5-11.5); RED BLOOD COUNT 2.91 X10e (3.90-5.60); RED CELL DISTRIBUTION WIDTH 13.3 % (11.0-15.5); WHITE BLOOD COUNT 7.8 X10e3 (4.0-10.5)
[2016-11-17 03:37] LABS: BLOOD UREA NITROGEN 19 mg/dL (9-23); BUN/CREATININE RATIO 15.83; CALCIUM SERUM 7.5 mg/dL (8.4-10.2); CARBON DIOXIDE 20 mmol/L (22-31); CHLORIDE 113 mmol/L (100-111); CREATININE SERUM 1.2 mg/dL (0.6-1.4); GLOM FILT RATE Estimated ABOVE60 mL/min (>60); GLUCOSE FASTING 136 mg/dL (70-110); MAGNESIUM 1.8 mg/dL (1.6-3.0); POTASSIUM 4.3 mmol/L (3.5-5.1); SODIUM 134 mmol/L (135-145)
[2016-11-19 03:11] LABS: BASOPHIL% 0.2 % (0-2.5); EOSINOPHIL# 0.2 X10e3 (0-0.7); EOSINOPHIL% 3.4 % (0.0-7.0); HEMATOCRIT 29.1 % (38.0-50.0); HEMOGLOBIN 9.7 gm/dL (13.0-16.0); LYMPHOCYTE# 0.5 X10e3 (1.0-3.5); LYMPHOCYTE% 6.7 % (17.0-45.0); MEAN CELL VOLUME 99.1 FL (83-96); MEAN CORPUSCULAR HEMOGLOBIN 33.1 PG (28-34); MEAN CORPUSCULAR HGB CONC 33.4 g/dL (30-36); MEAN PLATELET VOLUME 7.4 FL (6.5-11.5); MONOCYTE# 0.8 X10e3 (0-1.0); MONOCYTE% 11.2 % (3.0-12.0); NEUTROPHIL# 5.8 X10e3 (1.5-7.1); NEUTROPHIL% 78.5 % (40-75); PLATELET COUNT 301 X10e3 (140-420); RED BLOOD COUNT 2.94 X10e (3.90-5.60); RED CELL DISTRIBUTION WIDTH 13.6 % (11.0-15.5); WHITE BLOOD COUNT 7.4 X10e3 (4.0-10.5)
[2016-11-19 03:15] LABS: DIFF IND NO
[2016-11-19 03:38] LABS: ALBUMIN SERUM 2.3 g/dL (3.5-5.0); ALKALINE PHOSPHATASE 45 U/L (32-92); ALT (SGPT) 14 U/L (10-40); AST (SGOT) 15 U/L (10-42); BILIRUBIN,TOTAL 0.2 mg/dL (0.2-2.0); BLOOD UREA NITROGEN 18 mg/dL (9-23); CALCIUM SERUM 7.9 mg/dL (8.4-10.2); CARBON DIOXIDE 25 mmol/L (22-31); CHLORIDE 110 mmol/L (100-111); CREATININE SERUM 0.9 mg/dL (0.6-1.4); GLOM FILT RATE Estimated ABOVE60 mL/min (>60); GLUCOSE FASTING 142 mg/dL (70-110); POTASSIUM 4.1 mmol/L (3.5-5.1); PROTEIN TOTAL SERUM 5.7 g/dL (6.0-8.3); SODIUM 137 mmol/L (135-145)
[2016-11-20 02:31] LABS: HEMATOCRIT 28.8 % (38.0-50.0); HEMOGLOBIN 9.5 gm/dL (13.0-16.0); MEAN CELL VOLUME 98.9 FL (83-96); MEAN CORPUSCULAR HEMOGLOBIN 32.7 PG (28-34); MEAN CORPUSCULAR HGB CONC 33.1 g/dL (30-36); MEAN PLATELET VOLUME 7.1 FL (6.5-11.5); RED BLOOD COUNT 2.91 X10e (3.90-5.60); RED CELL DISTRIBUTION WIDTH 13.6 % (11.0-15.5); WHITE BLOOD COUNT 6.6 X10e3 (4.0-10.5)
[2016-11-20 03:11] LABS: ALBUMIN SERUM 2.2 g/dL (3.5-5.0); ALKALINE PHOSPHATASE 47 U/L (32-92); ALT (SGPT) 12 U/L (10-40); AST (SGOT) 15 U/L (10-42); BILIRUBIN,TOTAL 0.9 mg/dL (0.2-2.0); BLOOD UREA NITROGEN 14 mg/dL (9-23); CALCIUM SERUM 7.8 mg/dL (8.4-10.2); CARBON DIOXIDE 26 mmol/L (22-31); CHLORIDE 112 mmol/L (100-111); CREATININE SERUM 0.8 mg/dL (0.6-1.4); GLOM FILT RATE Estimated ABOVE60 mL/min (>60); GLUCOSE FASTING 124 mg/dL (70-110); POTASSIUM 4.3 mmol/L (3.5-5.1); PROTEIN TOTAL SERUM 5.5 g/dL (6.0-8.3); SODIUM 139 mmol/L (135-145)
[2016-11-22 03:57] LABS: BASOPHIL% 0.3 % (0-2.5); EOSINOPHIL# 0.2 X10e3 (0-0.7); EOSINOPHIL% 2.5 % (0.0-7.0); HEMATOCRIT 29.3 % (38.0-50.0); HEMOGLOBIN 9.6 gm/dL (13.0-16.0); LYMPHOCYTE# 0.6 X10e3 (1.0-3.5); LYMPHOCYTE% 6.8 % (17.0-45.0); MEAN CELL VOLUME 98.4 FL (83-96); MEAN CORPUSCULAR HEMOGLOBIN 32.1 PG (28-34); MEAN CORPUSCULAR HGB CONC 32.6 g/dL (30-36); MONOCYTE% 11.3 % (3.0-12.0); NEUTROPHIL# 6.9 X10e3 (1.5-7.1); NEUTROPHIL% 79.1 % (40-75); PLATELET COUNT 328 X10e3 (140-420); RED BLOOD COUNT 2.97 X10e (3.90-5.60); RED CELL DISTRIBUTION WIDTH 13.7 % (11.0-15.5); WHITE BLOOD COUNT 8.8 X10e3 (4.0-10.5)
[2016-11-22 03:58] LABS: DIFF IND NO
[2016-11-22 04:27] LABS: ALBUMIN SERUM 1.9 g/dL (3.5-5.0); ALKALINE PHOSPHATASE 52 U/L (32-92); ALT (SGPT) 19 U/L (10-40); AST (SGOT) 25 U/L (10-42); BILIRUBIN,TOTAL 1.1 mg/dL (0.2-2.0); BLOOD UREA NITROGEN 12 mg/dL (9-23); BUN/CREATININE RATIO 17.14; CARBON DIOXIDE 27 mmol/L (22-31); CHLORIDE 105 mmol/L (100-111); CREATININE SERUM 0.7 mg/dL (0.6-1.4); GLOM FILT RATE Estimated ABOVE60 mL/min (>60); GLUCOSE FASTING 82 mg/dL (70-110); POTASSIUM 4.5 mmol/L (3.5-5.1); PROTEIN TOTAL SERUM 4.9 g/dL (6.0-8.3); SODIUM 141 mmol/L (135-145)
[2016-11-23 03:55] LABS: HEMATOCRIT 30.1 % (38.0-50.0); HEMOGLOBIN 9.9 gm/dL (13.0-16.0); MEAN CELL VOLUME 98.8 FL (83-96); MEAN CORPUSCULAR HEMOGLOBIN 32.7 PG (28-34); MEAN CORPUSCULAR HGB CONC 33.1 g/dL (30-36); MEAN PLATELET VOLUME 7.4 FL (6.5-11.5); RED BLOOD COUNT 3.04 X10e (3.90-5.60); RED CELL DISTRIBUTION WIDTH 13.6 % (11.0-15.5); WHITE BLOOD COUNT 10.1 X10e3 (4.0-10.5)
[2016-11-23 04:22] LABS: BLOOD UREA NITROGEN 11 mg/dL (9-23); BUN/CREATININE RATIO 13.75; CALCIUM SERUM 7.8 mg/dL (8.4-10.2); CARBON DIOXIDE 28 mmol/L (22-31); CHLORIDE 102 mmol/L (100-111); CREATININE SERUM 0.8 mg/dL (0.6-1.4); GLOM FILT RATE Estimated ABOVE60 mL/min (>60); GLUCOSE FASTING 129 mg/dL (70-110); MAGNESIUM 2.2 mg/dL (1.6-3.0); PHOSPHOROUS 2.9 mg/dL (2.5-4.6); POTASSIUM 4.7 mmol/L (3.5-5.1); SODIUM 139 mmol/L (135-145)
[2016-11-25 02:15] LABS: HEMATOCRIT 33.2 % (38.0-50.0); HEMOGLOBIN 10.7 gm/dL (13.0-16.0); MEAN CELL VOLUME 99.3 FL (83-96); MEAN CORPUSCULAR HGB CONC 32.2 g/dL (30-36); MEAN PLATELET VOLUME 8.1 FL (6.5-11.5); RED BLOOD COUNT 3.34 X10e (3.90-5.60); RED CELL DISTRIBUTION WIDTH 13.8 % (11.0-15.5); WHITE BLOOD COUNT 10.8 X10e3 (4.0-10.5)
[2016-11-25 03:38] LABS: BLOOD UREA NITROGEN 6 mg/dL (9-23); CALCIUM SERUM 7.7 mg/dL (8.4-10.2); CARBON DIOXIDE 29 mmol/L (22-31); CHLORIDE 98 mmol/L (100-111); CREATININE SERUM 0.8 mg/dL (0.6-1.4); GLOM FILT RATE Estimated ABOVE60 mL/min (>60); GLUCOSE FASTING 151 mg/dL (70-110); POTASSIUM 4.7 mmol/L (3.5-5.1); SODIUM 134 mmol/L (135-145)
[2016-11-26 04:16] LABS: BASOPHIL% 0.3 % (0-2.5); EOSINOPHIL# 0.1 X10e3 (0-0.7); EOSINOPHIL% 1.3 % (0.0-7.0); HEMATOCRIT 33.3 % (38.0-50.0); LYMPHOCYTE# 0.6 X10e3 (1.0-3.5); LYMPHOCYTE% 8.2 % (17.0-45.0); MEAN CELL VOLUME 97.4 FL (83-96); MEAN CORPUSCULAR HEMOGLOBIN 32.1 PG (28-34); MEAN PLATELET VOLUME 7.7 FL (6.5-11.5); MONOCYTE# 0.9 X10e3 (0-1.0); NEUTROPHIL# 6.3 X10e3 (1.5-7.1); NEUTROPHIL% 79.2 % (40-75); PLATELET COUNT 486 X10e3 (140-420); RED BLOOD COUNT 3.41 X10e (3.90-5.60); RED CELL DISTRIBUTION WIDTH 13.7 % (11.0-15.5); WHITE BLOOD COUNT 7.9 X10e3 (4.0-10.5)
[2016-11-26 04:17] LABS: DIFF IND NO
[2016-11-26 04:38] LABS: BLOOD UREA NITROGEN 8 mg/dL (9-23); CALCIUM SERUM 7.5 mg/dL (8.4-10.2); CARBON DIOXIDE 29 mmol/L (22-31); CHLORIDE 100 mmol/L (100-111); CREATININE SERUM 0.8 mg/dL (0.6-1.4); GLOM FILT RATE Estimated ABOVE60 mL/min (>60); GLUCOSE FASTING 159 mg/dL (70-110); SODIUM 134 mmol/L (135-145)
== END 2016-11-29 18:36 | DRG 330 ==
LOC: CED 13:21 → CEDOF 16:07 → C2A 18:11 → C4C 11-15 13:57
PROVIDERS: Emergency Medicine; Internal Medicine; Specialist; Surgery
PROC: 0DTN0ZZ Resection of Sigmoid Colon, Open Approach (ICD-10-PCS; principal; 2016-11-15 08:30)
PROC: 0D1M0Z4 Bypass Descending Colon to Cutaneous, Open Approach (ICD-10-PCS; 2016-11-15 08:30)
PROC: 30233J1 Transfusion of Nonautologous Serum Albumin into Peripheral Vein, Percutaneous Approach (ICD-10-PCS; 2016-11-15 08:30)
PROC: 05HA33Z Insertion of Infusion Device into Left Brachial Vein, Percutaneous Approach (ICD-10-PCS; 2016-11-19)
PROC: B54NZZA Ultrasonography of Left Upper Extremity Veins, Guidance (ICD-10-PCS; 2016-11-19)
DX: C21.8 Malignant neoplasm of overlapping sites of rectum, anus and anal canal (principal); K91.3 Postprocedural intestinal obstruction; E11.9 Type 2 diabetes mellitus without complications; E66.9 Obesity, unspecified; J98.11 Atelectasis; T81.4XXA Infection following a procedure, initial encounter; Z87.891 Personal history of nicotine dependence; Z86.711 Personal history of pulmonary embolism; E03.9 Hypothyroidism, unspecified; G47.33 Obstructive sleep apnea (adult) (pediatric); Z79.82 Long term (current) use of aspirin; Z80.0 Family history of malignant neoplasm of digestive organs; Z83.3 Family history of diabetes mellitus; Z82.49 Family history of ischemic heart disease and other diseases of the circulatory system; Z68.39 Body mass index [BMI] 39.0-39.9, adult
CPT/HCPCS: 36415; 71020; 74000; 74020; 74022; 80048; 80053; 80076; 82150; 82308; 82378; 82947; 83690; 83735; 84100; 84443; 85014; 85018; 85025; 85027; 86850; 86900; 86901; 86923; 88309; 88341; 88342; 93005; 94010; 94760; 94761; 96361; 96374; 96375; 97110; 97116; 97163; 97166; 97530; 97535; 99285; C9113; G8978-GP; G8979-GP; G8980-GP; G8987-GO; G8988-GO; J0131; J0330; J1170; J1650; J1815; J1885; J2250; J2270; J2405; J2543; J2710; J2765; J2916; J3010; J3475; P9045